=== PATIENT | male | born 1995 | race American Indian/Alaskan Native ===

== ENCOUNTER 2019-05-30 08:47 | Emergency (ER) | payer MEDICAID ==
--- NOTE | 2019-05-30 09:44 | Emergency Department Report ---
ED Seizure HPI - General Chief Complaint: Seizure Stated Complaint: SEIZURE Time Seen by Provider: 05/30/19 09:34 Source: EMS Mode of arrival: Stretcher Limitations: No Limitations - History of Present Illness Initial Comments: 23-year-old -Ind[place]ian male with a history of seizure disorder and mood disorder presents to the emergency room stating that he had a seizure prior to arrival approximately 5 AM this morning and states that he had missed a dose of medication yesterday. Patient denies any new weaknesses does admit to neck pain and headache. Patient reports that it was reported that they found him snf in his closet and the other half on this floor. MD Complaint: seizure Seizure History: history of non-compliance (Missed dose of medication yesterday) Place: home Associated Symptoms: other (neck pain) Treatments Prior to Arrival: none - Related Data Home Medications Medication Instructions Recorded Confirmed Last Taken Divalproex ER [DepaKOTE ER] 500 mg PO TID 07/08/16 05/30/19 05/28/19 Previous Rx's Medication Instructions Recorded Last Taken Type Divalproex ER [DepaKOTE ER] 1,000 mg PO BID #60 tablet 05/30/19 Unknown Rx Divalproex ER [DepaKOTE ER] 500 mg PO BID #60 tablet 05/30/19 Unknown Rx Allergies Allergy/AdvReac Type Severity Reaction Status Date / Time No Known Allergies Allergy Verified 07/08/16 10:35 ED Review of Systems ROS: Stated complaint: SEIZURE Other details as noted in HPI Comment: All other systems reviewed and negative ED Past Medical Hx - Past Medical History Previous Medical History?: Yes Hx Seizures: Yes Hx Psychiatric Treatment: Yes - Surgical History Past Surgical History?: No - Social History Smoking Status: Current Every Day Smoker Substance Use Type: Alcohol - Medications Home Medications: Home Medications Medication Instructions Recorded Confirmed Last Taken Type Divalproex ER [DepaKOTE ER] 500 mg PO TID 07/08/16 05/30/19 05/28/19 History Divalproex ER [DepaKOTE ER] 1,000 mg PO BID #60 tablet 05/30/19 Unknown Rx Divalproex ER [DepaKOTE ER] 500 mg PO BID #60 tablet 05/30/19 Unknown Rx ED Physical Exam - General Limitations: No Limitations General appearance: alert, in no apparent distress - Head Head exam: Present: atraumatic, normocephalic - Eye Eye exam: Present: normal appearance - ENT ENT exam: Present: mucous membranes moist - Respiratory Respiratory exam: Present: normal lung sounds bilaterally. Absent: respiratory distress - Cardiovascular Cardiovascular Exam: Present: regular rate, normal rhythm. Absent: systolic murmur, diastolic murmur, rubs, gallop - GI/Abdominal GI/Abdominal exam: Present: soft, normal bowel sounds - Extremities Exam Extremities exam: Present: normal inspection - Back Exam Back exam: Present: normal inspection - Neurological Exam Neurological exam: Present: alert, oriented X3, normal gait - Psychiatric Psychiatric exam: Present: normal affect, normal mood - Skin Skin exam: Present: warm, dry, intact, normal color. Absent: rash ED Course Vital Signs 05/30/19 05/30/19 09:07 11:04 Temperature 98.1 F Pulse Rate 80 Respiratory 12 18 Rate Blood Pressure 138/86 [Left] O2 Sat by Pulse 98 Oximetry ED Medical Decision Making - Lab Data Laboratory Tests 05/30/19 05/30/19 05/30/19 09:56 09:56 10:34 WBC 7.0 RBC 5.80 H Hgb 15.5 H Hct 46.9 H MCV 81 L MCH 27 L MCHC 33 RDW 14.4 Plt Count 158 Lymph % (Auto) 20.9 Pender % (Auto) 5.6 Eos % (Auto) 0.4 Baso % (Auto) 0.5 Lymph # 1.5 Pender # 0.4 Eos # 0.0 Baso # 0.0 Seg Neutrophils % 72.6 H Seg Neutrophils # 5.1 Sodium Potassium Chloride Carbon Dioxide Anion Gap BUN Creatinine Estimated GFR BUN/Creatinine Ratio Glucose Calcium Total Bilirubin AST ALT Alkaline Phosphatase Total Creatine Kinase Total Protein Albumin Albumin/Globulin Ratio Urine Color Yellow Urine Turbidity Clear Urine pH 5.0 Ur Specific [place] 1.014 Urine Protein 100 mg/dl Urine Glucose (UA) Neg Urine Ketones Tr Urine Blood Neg Urine Nitrite Neg Urine Bilirubin Neg Urine Urobilinogen < 2.0 Ur Leukocyte Esterase Neg Urine WBC (Auto) 5.0 Urine RBC (Auto) 1.0 U Epithel Cells (Auto) < 1.0 Urine Opiates Screen Presumptive negative Urine Methadone Screen Presumptive negative Ur Barbiturates Screen Presumptive negative Valproic Acid Ur Phencyclidine Scrn Presumptive negative Ur Amphetamines Screen Presumptive negative U Benzodiazepines Scrn Presumptive negative Urine Cocaine Screen Presumptive negative U Marijuana (THC) Screen Presumptive positive Drugs of Abuse Note Disclamer 05/30/19 05/30/19 10:34 10:34 WBC RBC Hgb Hct MCV MCH MCHC RDW Plt Count Lymph % (Auto) Pender % (Auto) Eos % (Auto) Baso % (Auto) Lymph # Pender # Eos # Baso # Seg Neutrophils % Seg Neutrophils # Sodium 142 Potassium 3.7 Chloride 104.8 Carbon Dioxide 25 Anion Gap 16 BUN 9 Creatinine 0.8 Estimated GFR > 60 BUN/Creatinine Ratio 11 Glucose 105 H Calcium 9.5 Total Bilirubin 0.30 AST 14 ALT 11 Alkaline Phosphatase 54 Total Creatine Kinase 152 Total Protein 7.6 Albumin 4.4 Albumin/Globulin Ratio 1.4 Urine Color Urine Turbidity Urine pH Ur Specific [place] Urine Protein Urine Glucose (UA) Urine Ketones Urine Blood Urine Nitrite Urine Bilirubin Urine Urobilinogen Ur Leukocyte Esterase Urine WBC (Auto) Urine RBC (Auto) U Epithel Cells (Auto) Urine Opiates Screen Urine Methadone Screen Ur Barbiturates Screen Valproic Acid 12.0 L Ur Phencyclidine Scrn Ur Amphetamines Screen U Benzodiazepines Scrn Urine Cocaine Screen U Marijuana (THC) Screen Drugs of Abuse Note - Radiology Data Radiology results: report reviewed Patient: SOHA MARINELLI MR#: [id number] : 1995 Acct:[id number] Age/Sex: 23 / M ADM Date: 05/30/19 Loc: ED Attending Dr: Ordering Physician: JOSE VALDES Date of Service: 05/30/19 Procedure(s): CT head/brain wo con Accession Number(s): [id number] cc: JOSE VALDES CT head without contrast INDICATION : mendosa with fall during seizure. TECHNIQUE: Axial imaging performed from the skull apex through the skull base without the use of contrast. All CT scans at this location are performed using CT dose reduction for ALARA by means of automated exposure control. COMPARISON: Facial bone CT from 11/20/2015 FINDINGS: Parenchyma: No acute intracranial hemorrhage or parenchymal abnormality. Ventricles: Ventricles are normal in size and appear symmetric. Soft tissues: Soft tissues including the orbits appear normal. Bones: No acute osseous abnormality. Sinuses: Sinuses and mastoid air cells are clear. IMPRESSION: No acute abnormality. Signer Name: Sav Brannon MD Signed: 05/30/2019 10:23 AM Workstation Name: [id number] Transcribed By: JW Dictated By: Sav Brannon MD Electronically Authenticated By: Sav Brannon MD Signed Date/Time: 05/30/19 1023 DD/ 1023 TD/TT: Patient: SOHA MARINELLI MR#: [id number] : 1995 Acct:[id number] Age/Sex: 23 / M ADM Date: 05/30/19 Loc: ED Attending Dr: Ordering Physician: JOSE VALDES Date of Service: 05/30/19 Procedure(s): CT cervical spine wo con Accession Number(s): [id number] cc: JOSE VALDES CT cervical spine spine without contrast INDICATION: mendosa with fall during seizure. TECHNIQUE: Axial imaging performed through the cervical without the use of contrast. Sagittal and coronal reconstructed images were also reviewed. All CT scans at this location are performed using CT dose reduction for ALARA by means of automated exposure control. COMPARISON: None FINDINGS: Alignment: Spinal alignment is normal. Bones: There is no acute osseous abnormality. No significant DJD. Soft tissues: No acute or significant incidental soft tissue abnormality. IMPRESSION: No acute abnormality. Signer Name: Sav Brannon MD Signed: 05/30/2019 10:29 AM Workstation Name: [id number] Transcribed By: JW Dictated By: Sav Brannon MD Electronically Authenticated By: Sav Brannon MD Signed Date/Time: 05/30/19 1029 DD/ 1028 TD/TT: - Medical Decision Making 23-year-old -Ind[place]ian male with a history of seizure disorder and mood disorder presents to the emergency room stating that he had a seizure prior to arrival approximately 5 AM this morning and states that he had missed a dose of medication yesterday. Patient denies any new weaknesses does admit to neck pain and headache. Patient reports that it was reported that they found him snf in his closet and the other half on this floor. Basic labs have been ordered. Noted that Depakote/upper acid was low. Patient was given Keppra 1000 mg by mouth upon arrival. Patient was then given Depakote 1500 mg by mouth. Patient will be discharged home with a prescription for his Depakote extended release for 1500 mg. Patient is to be compliant with his medication and follow up with his neurologist. Critical care attestation.: If time is entered above; I have spent that time in minutes in the direct care of this critically ill patient, excluding procedure time. ED Disposition Clinical Impression: Seizure disorder Disposition: TO HOME OR SELFCARE Is pt being admited?: No Does the pt Need Aspirin: No Condition: Stable Instructions: Epilepsy (ED) Prescriptions: Divalproex ER [DepaKOTE ER] 1,000 mg PO BID #60 tablet Divalproex ER [DepaKOTE ER] 500 mg PO BID #60 tablet Referrals: NARCISA CROOKS MD [Referring] - 3-5 Days
[2019-05-30 10:15] LABS: Bilirubin,Urine NEG (Negative); Blood,Urine NEG (Negative); Color,Urine Yellow (Yellow); Urobilinogen,Urine < 2.0 mg/dL (<2.0)
[2019-05-30] MEDS ORDERED: levETIRAcetam 1000 MG/NS 0.75% 1,000 MG/100 ML BAG IV ONE (10:20)
[2019-05-30 10:23] LABS: Amphetamine Screen,Urine PRESUMPTIVE NEGATIVE; Benzodiazepines Screen,Urine PRESUMPTIVE NEGATIVE; Methadone Screen,Urine PRESUMPTIVE NEGATIVE; Opiate Screen,Urine PRESUMPTIVE NEGATIVE
--- NOTE | 2019-05-30 10:28 | Cat Scan Report ---
CT head without contrast INDICATION : mendosa with fall during seizure. TECHNIQUE: Axial imaging performed from the skull apex through the skull base without the use of con trast. All CT scans at this location are performed using CT dose reduction for ALARA by means of aut omated exposure control. COMPARISON: Facial bone CT from 11/20/2015 FINDINGS: Parenchyma: No acute intracranial hemorrhage or parenchymal abnormality. Ventricles: Ventricles are normal in size and appear symmetric. Soft tissues: Soft tissues including the orbits appear normal. Bones: No acute osseous abnormality. Sinuses: Sinuses and mastoid air cells are clear. IMPRESSION: No acute abnormality. Signer Name: Sav Brannon MD Signed: 05/30/2019 10:23 AM Workstation Name: [id number]
--- NOTE | 2019-05-30 10:34 | Cat Scan Report ---
CT cervical spine spine without contrast INDICATION: mnedosa with fall during seizure. TECHNIQUE: Axial imaging performed through the cervical without the use of contrast. Sagittal and c oronal reconstructed images were also reviewed. All CT scans at this location are performed using CT dose reduction for ALARA by means of automated exposure control. COMPARISON: None FINDINGS: Alignment: Spinal alignment is normal. Bones: There is no acute osseous abnormality. No significant DJD. Soft tissues: No acute or significant incidental soft tissue abnormality. IMPRESSION: No acute abnormality. Signer Name: Sav Brannon MD Signed: 05/30/2019 10:29 AM Workstation Name: [id number]
[2019-05-30] MEDS ORDERED: ACETAMINOPHEN 500 MG TAB PO ONE (10:36)
[2019-05-30 10:50] LABS: Cannabinoid Screen,Urine PRESUMPTIVE POSITIVE; Cocaine Screen,Urine PRESUMPTIVE NEGATIVE
[2019-05-30 11:23] LABS: Alanine Aminotransferase 11 units/L (7-56); Albumin 4.4 g/dL (3.9-5); BUN/Creatinine Ratio 11; Blood Urea Nitrogen 9 mg/dL (9-20); Calcium 9.5 mg/dL (8.4-10.2); Hemolysis Index 4
[2019-05-30 11:26] LABS: Basophils % (Auto) 0.5 % (0.0-1.8); Eosinophils % (Auto) 0.4 % (0.0-4.3); Hematocrit 46.9 % (35.5-45.6); Hemoglobin 15.5 gm/dl (11.8-15.2); Lymphocytes # (Auto) 1.5 K/mm3 (1.2-5.4); Lymphocytes % (Auto) 20.9 % (13.4-35.0); Mean Corpuscular HGB Conc 33 % (32-34); Mean Corpuscular Volume 81 fl (84-94); Monocytes # (Auto) 0.4 K/mm3 (0.0-0.8); Monocytes % (Auto) 5.6 % (0.0-7.3); Platelet Count 158 K/mm3 (140-440); Red Cell Distribution Width 14.4 % (13.2-15.2)
[2019-05-30 11:35] VITALS: BP 134/77
[2019-05-30] MEDS ORDERED: DIVALPROEX ER 500 MG TAB PO ONE ×2 (12:08→12:38)
== END 2019-05-30 14:03 | disposition home or self-care (01) ==
LOC: ED 08:47
DX: G40.909 Epilepsy, unspecified, not intractable, without status epilepticus (principal); F17.200 Nicotine dependence, unspecified, uncomplicated; Z79.899 Other long term (current) drug therapy
CPT/HCPCS: 36415; 70450; 72125; 80053; 80164; 80307; 81001; 82550; 85025; 96365; 99284; J1953

== ENCOUNTER 2020-02-02 11:01 | Emergency (ER) | payer MEDICAID ==
[2020-02-02] MEDS ORDERED: ACETAMINOPHEN 500 MG TAB PO ONE (12:01)
--- NOTE | 2020-02-02 12:05 | Emergency Department Report ---
ED Seizure HPI - General Chief Complaint: Seizure Stated Complaint: SEIZURE Time Seen by Provider: 02/02/20 11:55 Source: patient, EMS Mode of arrival: Stretcher Limitations: No Limitations - History of Present Illness Initial Comments: Patient is 24 years old male with history of seizure on Depakote. Patient brought to the emergency room via EMS from home for evaluation of seizure. Patient stated that he is compliant with his medication. Patient denied any injury. Patient denied any fever, chills, cough, chest pain shortness of breath or abdominal pain. MD Complaint: seizure -: Sudden, This morning Description of Episode: loss of consciousness, tonic-clonic movement Witnessed:: Yes Trauma: No Seizure History: known seizure disorder Possible Precipitating Event: none Associated Symptoms: denies other symptoms - Related Data Home Medications Medication Instructions Recorded Confirmed Last Taken Divalproex ER [DepaKOTE ER] 500 mg PO TID 07/08/16 05/30/19 05/28/19 Previous Rx's Medication Instructions Recorded Last Taken Type Divalproex ER [DepaKOTE ER] 1,000 mg PO BID #60 tablet 05/30/19 Unknown Rx Divalproex ER [DepaKOTE ER] 500 mg PO BID #60 tablet 05/30/19 Unknown Rx Allergies Allergy/AdvReac Type Severity Reaction Status Date / Time No Known Allergies Allergy Verified 02/02/20 11:40 ED Review of Systems ROS: Stated complaint: SEIZURE Other details as noted in HPI Comment: All other systems reviewed and negative Constitutional: denies: chills, fever Respiratory: denies: cough, shortness of breath, SOB with exertion, SOB at rest, wheezing Cardiovascular: denies: chest pain, palpitations Gastrointestinal: denies: abdominal pain, nausea, vomiting, diarrhea, constipation, hematemesis, melena, hematochezia Musculoskeletal: denies: back pain Neurological: denies: headache, weakness, numbness, paresthesias, confusion ED Past Medical Hx - Past Medical History Previous Medical History?: Yes Hx Seizures: Yes Hx Psychiatric Treatment: Yes (ADHD PTSD) - Social History Smoking Status: Current Every Day Smoker Substance Use Type: Marijuana - Medications Home Medications: Home Medications Medication Instructions Recorded Confirmed Last Taken Type Divalproex ER [DepaKOTE ER] 500 mg PO TID 07/08/16 05/30/19 05/28/19 History Divalproex ER [DepaKOTE ER] 1,000 mg PO BID #60 tablet 05/30/19 Unknown Rx Divalproex ER [DepaKOTE ER] 500 mg PO BID #60 tablet 05/30/19 Unknown Rx ED Physical Exam - General Limitations: No Limitations General appearance: alert, in no apparent distress - Head Head exam: Present: atraumatic, normocephalic, normal inspection - Eye Eye exam: Present: normal appearance, PERRL - ENT ENT exam: Present: normal exam, normal orophraynx, mucous membranes moist - Neck Neck exam: Present: normal inspection, full ROM. Absent: tenderness, meningismus, lymphadenopathy, thyromegaly - Respiratory Respiratory exam: Present: normal lung sounds bilaterally - Cardiovascular Cardiovascular Exam: Present: regular rate, normal rhythm, normal heart sounds - GI/Abdominal GI/Abdominal exam: Present: soft, normal bowel sounds. Absent: distended, tenderness, guarding, rebound, rigid, organomegaly, mass, bruit, pulsatile mass, hernia - Extremities Exam Extremities exam: Present: normal inspection, full ROM, normal capillary refill. Absent: tenderness, pedal edema, calf tenderness - Back Exam Back exam: Present: normal inspection, full ROM. Absent: CVA tenderness (R), CVA tenderness (L) - Neurological Exam Neurological exam: Present: alert, oriented X3, CN II-XII intact, normal gait, reflexes normal. Absent: motor sensory deficit - Psychiatric Psychiatric exam: Present: normal mood - Skin Skin exam: Present: warm, intact, normal color ED Course Vital Signs 02/02/20 02/02/20 02/02/20 11:42 11:56 13:35 Temperature 97.3 F L Pulse Rate 72 Respiratory 16 18 16 Rate Blood Pressure 121/88 O2 Sat by Pulse 94 Oximetry ED Medical Decision Making - Lab Data Result diagrams: 02/02/20 12:47 02/02/20 12:47 - Medical Decision Making Patient is 24 years old male with history of seizure on Depakote. Patient brought to the emergency room via EMS from home for evaluation of seizure. Patient stated that he is compliant with his medication. Patient denied any injury. Patient denied any fever, chills, cough, chest pain shortness of breath or abdominal pain. No seizure activity observed in the ER. Patient labs reviewed and is unremarkable except for significantly low valproic acid. Patient given Depakote 500 mg IV. Patient is taking only 500 mg daily, patient advised to increase his dose to 500 mg twice a day and to follow-up with his neurologist in the next 2 to 3 days. Patient advised to return to the ER if he develop any new symptoms. Critical care attestation.: If time is entered above; I have spent that time in minutes in the direct care of this critically ill patient, excluding procedure time. ED Disposition Clinical Impression: Seizure Disposition: DC-01 TO HOME OR SELFCARE Is pt being admited?: No Condition: Stable Instructions: Recurrent Seizures Adult (ED)
--- NOTE | 2020-02-02 12:57 | XRay Report ---
CHEST 2 VIEWS INDICATION: SOB. COMPARISON: None FINDINGS: Support devices: None. Heart: Within normal limits. Lungs: No acute air space or interstitial disease. Pleura: No significant pleural effusion. No pneumothorax. Additional findings: None. IMPRESSION: 1. No acute findings. Signer Name: Diego De La Paz MD Signed: 02/02/2020 12:53 PM Workstation Name: [id number]
[2020-02-02 13:12] LABS: Basophils % (Auto) 0.8 % (0.0-1.8); Eosinophils % (Auto) 0.7 % (0.0-4.3); Hematocrit 43.2 % (35.5-45.6); Hemoglobin 14.5 gm/dl (11.8-15.2); Lymphocytes # (Auto) 1.3 K/mm3 (1.2-5.4); Lymphocytes % (Auto) 21.9 % (13.4-35.0); Mean Corpuscular HGB Conc 34 % (32-34); Mean Corpuscular Volume 82 fl (84-94); Monocytes # (Auto) 0.3 K/mm3 (0.0-0.8); Platelet Count 139 K/mm3 (140-440); Red Blood Count 5.26 M/mm3 (3.65-5.03); Red Cell Distribution Width 14.4 % (13.2-15.2)
[2020-02-02 13:22] LABS: Alanine Aminotransferase 13 units/L (7-56); Albumin 4.4 g/dL (3.9-5); BUN/Creatinine Ratio 10; Blood Urea Nitrogen 8 mg/dL (9-20); Calcium 9.5 mg/dL (8.4-10.2); Hemolysis Index 6
[2020-02-02 13:26] LABS: Bilirubin,Direct 0.2 mg/dL (0-0.2)
[2020-02-02] MEDS ORDERED: VALPROATE SODIUM 500 MG in SODIUM CHLORIDE 0.9% 100 ML IV ONE (14:00)
[2020-02-02 15:06] VITALS: BP 128/74
== END 2020-02-02 15:06 | disposition home or self-care (01) ==
LOC: ED 11:01
DX: G40.909 Epilepsy, unspecified, not intractable, without status epilepticus (principal); F90.9 Attention-deficit hyperactivity disorder, unspecified type; F43.10 Post-traumatic stress disorder, unspecified; F17.200 Nicotine dependence, unspecified, uncomplicated; F12.10 Cannabis abuse, uncomplicated; Z79.899 Other long term (current) drug therapy
CPT/HCPCS: 36415; 71046; 80048; 80076; 80164; 85025; 96365

== ENCOUNTER 2020-06-24 22:07 | Emergency (ER) | payer MEDICAID ==
--- NOTE | 2020-06-25 00:37 | XRay Report ---
Cervical spine-2 views Lumbar spine-2 views INDICATION: Acute neck and low back pain. COMPARISON: None. IMPRESSION: Mild levoscoliosis centered at L3. Otherwise normal cervical and lumbar spinal alignment . No significant discogenic DJD or facet arthropathy. No acute osseous or soft tissue abnormality. Signer Name: Sav Brannon MD Signed: 06/25/2020 12:32 AM Workstation Name: [id number]
--- NOTE | 2020-06-25 00:37 | XRay Report ---
Left knee-2 views INDICATION: left knee pain. COMPARISON: None. IMPRESSION: No acute osseous or soft tissue abnormality. No significant DJD. Signer Name: Sav Brannon MD Signed: 06/25/2020 12:33 AM Workstation Name: [id number]
[2020-06-25] MEDS ORDERED: IBUPROFEN 800 MG TAB PO ONE (00:54)
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
[2020-06-25 02:51] VITALS: BP 147/92
== END 2020-06-25 02:49 | disposition home or self-care (01) ==
LOC: ED 22:07
DX: S33.5XXA Sprain of ligaments of lumbar spine, initial encounter (principal); S80.02XA Contusion of left knee, initial encounter; F17.200 Nicotine dependence, unspecified, uncomplicated; F12.90 Cannabis use, unspecified, uncomplicated; Z79.899 Other long term (current) drug therapy; Z86.69 Personal history of other diseases of the nervous system and sense organs; V49.59XA Passenger injured in collision with other motor vehicles in traffic accident, initial encounter; Y92.410 Unspecified street and highway as the place of occurrence of the external cause; Y93.89 Activity, other specified; Y99.8 Other external cause status
CPT/HCPCS: 72040; 72100